=== PATIENT | male | born 2000 | race Two or more races ===

== ENCOUNTER 2024-09-13 22:43 | Emergency (ER) | payer OTHER ==
[~2024-09-13] VITALS: Ht 170.2 cm; Wt 81.6 kg
[2024-09-13 23:21] VITALS: BP 121/70; TEMP 98.9; O2SAT 100
[2024-09-14] MEDS ORDERED: IBUP-1490 PO (00:03)
== END 2024-09-14 00:23 | disposition home or self-care (01) ==
LOC: ER 22:59
DX: S80.812A Abrasion, left lower leg, initial encounter (principal); B34.9 Viral infection, unspecified; J45.909 Unspecified asthma, uncomplicated; Z88.0 Allergy status to penicillin; Z88.2 Allergy status to sulfonamides; Z88.1 Allergy status to other antibiotic agents; W19.XXXA Unspecified fall, initial encounter; Y92.830 Public park as the place of occurrence of the external cause; Y93.89 Activity, other specified; Y99.8 Other external cause status